=== PATIENT | female | born 1975 | race Hispanic/Latino ===

== ENCOUNTER 2016-07-26 17:24 | Emergency (ER) | payer OTHER ==
[~2016-07-26] VITALS: Ht 162.6 cm; Wt 81.6 kg
[2016-07-26 17:33] VITALS: BP 107/69
--- NOTE | 2016-07-26 19:43 | ED HEADACHE COMPLAINT ---
History of Present Illness General Chief Complaint: General Adult Stated Complaint: PT VOMITING AND HEADACHE Source: patient, family Exam Limitations: no limitations Vital Signs & Intake/Output Vital Signs & Intake/Output Vital Signs Date Time Temp Pulse Resp B/P B/P Pulse O2 O2 Flow FiO2 Mean Ox Delivery Rate 07/26 1733 98.1 96 15 107/69 98 Room Air Room Air Allergies Coded Allergies: aspirin (Severe, DIFFICULTY BREATHING 07/26/16) ibuprofen (Severe, CHEST TIGHTNESS, DIFF BREATHING 07/26/16) Reconcile Medications Butalb/Acetaminophen/Caffeine (Fioricet 50-300-40 MG Capsule) 50 MG-300 MG-40 MG CAPSULE 1 TAB PO Q6 PRN PAIN Ondansetron (Zofran Odt) 4 MG TAB.RAPDIS 1 TAB PO Q6 PRN NAUSEA Triage Note: PT TO ED FOR HEADACHE THAT STARTED YESTERDAY AND HAS BEEN CONSTANT SINCE AND TODAY IS WORSE. 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 DENIES CHANGE IN VISION OR PHOTOPHOBIA. +NAUSEA. DENIES NUMBNESS OR TINGLING. Triage Nurses Notes Reviewed? yes Onset: Abrupt Duration: day(s): (1) Timing: multiple episodes today Quality/Severity: moderate, severe Head Injury Location: left frontal radiating to back Associated Symptoms: nausea/vomiting : No Patient currently breastfeeds: No HPI: This is a 41-year-old female with history of allergies and previous migraine headaches who presents to the ER for chief complaint of left-sided headache, nausea and vomiting all day long today. She took a pain medication that she had leftover from surgery on July 13 which she states that she kept down but didn't help. Pain is moderate to severe in intensity and sharp. She states that pounds. When she moves her head she feels slightly dizzy. Pain was gradual in onset. Positive light sensitivity. No confusion or blurred vision. No chest pain or shortness breath. Denies any abdominal pain. No complications from the surgery. She states that currently she is having her menstruation. She is due for post checkup tomorrow with the urologist at [facility]. Denies any trauma or fall. Denies any recent illnesses. Denies any sick contacts. Past History Travel History Traveled to [place] past 21 day No Medical History Any Pertinent Medical History? see below for history Neurological: migraine EENT: allergies Cardiovascular: NONE Respiratory: NONE Gastrointestinal: NONE Hepatic: NONE Renal: NONE Musculoskeletal: NONE Psychiatric: NONE Endocrine: NONE Blood Disorders: NONE Cancer(s): NONE CONDUCTOR ORCHESTRA/Reproductive: NONE Surgical History Surgical History: BLADDER MESH 07/13/16 Psychosocial History What is your primary language Serbian Tobacco Use: Never used ETOH Use: denies use Illicit Drug Use: denies illicit drug use Family History Hx Contributory? No Review of Systems Review of Systems Constitutional: Denies: chills, fever. Eyes: Reports: photophobia. Denies: blurred vision. Ears, Nose, Throat, Mouth: Reports: no symptoms. Respiratory: Reports: no symptoms. Cardiovascular: Reports: no symptoms. Gastrointestinal/Abdominal: Reports: nausea, vomiting. Denies: abdominal pain. Genitourinary: Reports: no symptoms. Musculoskeletal: Reports: no symptoms. Skin: Reports: no symptoms. Neurological/Psychological: Reports: numbness. Denies: anxiety, confusion, headache, tingling. Hematologic/Endocrine: Reports: no symptoms. Endocrine: Reports: no symptoms. Immunologic/Allergic: Reports: no symptoms. All Other Systems: Reviewed and Negative Physical Exam Physical Exam General Appearance: well developed/nourished, alert, awake Head: atraumatic, normal appearance Eyes: Bilateral: normal appearance, PERRL, EOMI. Ears, Nose, Throat: normal pharynx, hearing grossly normal Neck: normal inspection, supple, full range of motion Respiratory: normal breath sounds, chest non-tender, no respiratory distress Cardiovascular: regular rate/rhythm Gastrointestinal: soft, non-tender Extremities: normal inspection, normal capillary refill, normal range of motion, no edema Psychiatric: awake, alert, oriented x 3 Cranial Nerves: normal hearing, normal speech, PERRL Coordination/Gait: normal gait, Positive Romberg's sign Core Measures Severe Sepsis Present: No Septic Shock Present: No Progress Differential Diagnosis: migraine ABREU Plan of Care: Orders Procedure Date/time Status URINE 07/26 1841 Active URINALYSIS 07/26 1841 Active 8:58 PM Some improvement. Patient requesting more medications for nausea and pain. 9:51 PM IMPROVED. ENCOURAGED TO START PO FLUIDS. (CARI GRAY,MANUEL) Departure Departure Time of Disposition: 2226 Disposition: HOME OR SELF CARE Condition: Stable Clinical Impression Primary Impression: Migraine Referrals: PATIENT HAS NO PRIMARY CARE DR (PCP/Family) Additional Instructions: Take Zofran and Fioricet as directed. Drink plenty of fluids. Please follow up with primary care doctor in the office. Return as needed. Departure Forms: Customer Survey General Discharge Information Prescriptions: Current Visit Scripts Ondansetron (Zofran Odt) 1 TAB PO Q6 PRN NAUSEA #12 TAB Butalb/Acetaminophen/Caffeine (Fioricet 50-300-40 MG Capsule) 1 TAB PO Q6 PRN PAIN #20 TAB
[2016-07-26] MEDS ORDERED: FIORICET 50-301 EACH PO (21:52)
[2016-07-26] MEDS ORDERED: ZOFRAN ODT4 M1 PO (21:52)
== END 2016-07-26 22:58 ==
LOC: ERH 17:24
DX: G43.909 Migraine, unspecified, not intractable, without status migrainosus (principal)
CPT/HCPCS: 81025; 96361; 96374; 96375; J0131; J2405; J2550